=== PATIENT | male | born 1955 | race Caucasian/White ===

== ENCOUNTER → 2016-10-30 | Outpatient (CLI) | payer OTHER ==
--- NOTE | ~2016-10-30 | CT2 ---
[facility]. [facility] A Service of [facility] RADIOLOGY TEXT RESULTS PATIENT: MARIANA IYER LOCATION: [facility] : 57 UNIT #: [id number] AGE: [address]: Mauro Robert MD SEX: M ORDER DR: [id number] [place] [id number] O MR#: [id number] Acc #: [id number] NAME: MARIANA IYER : 1955 SEX: M STUDY DATE/TIME: 10/30/2016 12:35 UNIT: [facility] ROOM: STUDY DESCRIPTION: CT Abd and Pelv W Cont Attending Physician: Mauro Robert M.D. Referring Physician: Mauro Robert M.D. Ordering Physician: Mauro Robert M.D. Primary Care Physician: Sultana Ventura M.D. MEDICAL IMAGING REPORT This report is preliminary unless electronic signature is present. EXAM CT abdomen and pelvis, 10/30/2016 INDICATIONS Right-sided lung cancer, status post right pneumonectomy. Restaging. Observation for metastatic disease. TECHNIQUE CT of the abdomen and pelvis with p.o. and IV contrast. 100 mL Isovue-370 IV contrast was utilized. This CT exam was performed with one or more of the following radiation dose reduction techniques: automatic exposure control, adjustment of mA and/or kV according to patient size, and iterative reconstruction. COMPARISON PET/CT dated 01/18/2016. FINDINGS ABDOMEN: Please refer to separately dictated report for details on the chest. The solid abdominal organs enhance normally. Specifically, the adrenal glands are normal in appearance. The gallbladder is not distended. The bowel is not dilated. No enlarged retroperitoneal or mesenteric lymph nodes. Abdominal aorta has some atherosclerotic disease, however is normal in caliber. PELVIS: There is some mild wall thickening of the urinary bladder. This may be due to low bladder volume, however correlate with urinalysis to identify cystitis. No enlarged pelvic or inguinal lymph nodes. [facility] A Service of [facility] RADIOLOGY TEXT RESULTS PATIENT: MARIANA IYER LOCATION: [facility] : 57 UNIT #: [id number] AGE: [address]: Mauro Robert MD SEX: M ORDER DR: No acute osseous abnormalities. IMPRESSION 1. No evidence of metastatic disease in the abdomen or pelvis. 2. Mild bladder wall thickening is nonspecific and may simply relate to a lack of distension however, I would recommend correlation with urinalysis to differentiate from a cystitis. Dictated by... Fred Cueva M.D. THIS IS AN ELECTRONICALLY VERIFIED REPORT Fred Cueva M.D. at 10/30/2016 10:23 PM ROSALIND/[email or web address] TD: 10/30/2016 21:57 JOB #: [id number] MEDICAL IMAGING REPORT
--- NOTE | ~2016-10-30 | CT55 ---
[facility] A Service of [facility] RADIOLOGY TEXT RESULTS PATIENT: MARIANA IYER LOCATION: [facility] : 57 UNIT #: [id number] AGE: [address]: Mauro Robert MD SEX: M ORDER DR: [id number] [place] [id number] O MR#: [id number] Acc #: [id number] NAME: MARIANA IYER : 1955 SEX: M STUDY DATE/TIME: 10/30/2016 12:35 UNIT: [facility] ROOM: STUDY DESCRIPTION: CT Chest W Con Attending Physician: Mauro Robert M.D. Referring Physician: Mauro Robert M.D. Ordering Physician: Mauro Robert M.D. Primary Care Physician: Sultana Ventura M.D. MEDICAL IMAGING REPORT This report is preliminary unless electronic signature is present. EXAM CT chest. DATE OF EXAM 10/30/2016 CLINICAL HISTORY Right lung cancer, status post right lobectomy. Restaging. Observation for metastatic disease. TECHNIQUE CT of the thorax utilizing 100 mL Isovue-370 IV contrast. Coronal and sagittal reconstructions were obtained. NOTE: This CT exam was performed with one or more of the following radiation dose reduction techniques: automatic exposure control, adjustment of mA and/or kV according to patient size, and iterative reconstruction. COMPARISON CT thorax dated 07/30/2016. FINDINGS The patient undergone a right pneumonectomy. There are minimal tree-in-bud nodules in the left costophrenic angle of the left lower lobe, unchanged from 07/30/2016. These are most consistent with inflammatory nodules. The central airways are patent. No pathologically enlarged mediastinal or hilar lymph nodes. There is shift of the mediastinum towards the right, not unexpected given the prior surgery. Please refer to the separately dictated report for details on the abdomen and pelvis. [facility] A Service [facility] RADIOLOGY TEXT RESULTS PATIENT: MARIANA IYER LOCATION: [facility] : 57 UNIT #: [id number] AGE: [address]: Mauro Robert MD SEX: M ORDER DR: No acute osseous abnormalities. IMPRESSION 1. No evidence of recurrent or metastatic disease in a patient status post right pneumonectomy. 2. Minimal tree-in-bud nodularity in the left lung base is unchanged from 07/30/2016. Dictated by... Fred Cueva M.D. THIS IS AN ELECTRONICALLY VERIFIED REPORT Fred Cueva M.D. at 10/30/2016 10:23 PM ROSALIND/kris TD: 10/30/2016 21:57 JOB #: [id number] MEDICAL IMAGING REPORT
[2016-10-30 12:35] LABS: POC - CREATININE 1.13 mg/dL (0.64-1.27); POC - GFR >60.0 mL/min (>60)
== END | disposition home or self-care (01) ==
LOC: SCT 11:57
PROVIDERS: Internal Medicine Hematology
DX: Z08 Encounter for follow-up examination after completed treatment for malignant neoplasm (principal); R91.8 Other nonspecific abnormal finding of lung field; N32.89 Other specified disorders of bladder; Z90.2 Acquired absence of lung [part of]; Z85.118 Personal history of other malignant neoplasm of bronchus and lung
CPT/HCPCS: 71260; 74177; 82565; Q9967

== ENCOUNTER → 2017-02-04 | Outpatient (CLI) | payer OTHER ==
--- NOTE | ~2017-02-04 | CT55 ---
[facility] A Service of [facility] RADIOLOGY TEXT RESULTS PATIENT: MARIANA IYER LOCATION: [facility] : 57 UNIT #: [id number] AGE: [address]: Mauro Robert MD SEX: M ORDER DR: [id number] [place] [id number] O MR#: [id number] Acc #: [id number] NAME: MARIANA IYER : 1955 SEX: M STUDY DATE/TIME: 02/04/2017 12:34 UNIT: [facility] ROOM: STUDY DESCRIPTION: CT Chest W Con Attending Physician: Mauro Robert M.D. Referring Physician: Mauro Robert M.D. Ordering Physician: Mauro Robert M.D. Primary Care Physician: Sultana Ventura M.D. MEDICAL IMAGING REPORT This report is preliminary unless electronic signature is present. EXAM CT chest with contrast. INDICATION Lung cancer. 3-month followup. Observation for residual disease and metastatic disease. PROCEDURE Contrast-enhanced CT of the chest. This CT exam was performed with one or more of the following radiation dose reduction techniques: automatic exposure control, adjustment of mA and/or kV according to patient size, and iterative reconstruction. COMPARISON 10/30/2016 FINDINGS The patient is status post right pneumonectomy. No suspicious nodules in the left lung. Expected volume loss right hemithorax with shift of the heart and mediastinal structures to the right. No appreciable nodularity in the right hemithorax. No adenopathy. No acute findings in the included upper abdomen. IMPRESSION Stable right pneumonectomy changes. No evidence for residual disease or metastatic disease to the chest. Dictated by... Hudson Antonio M.D. [facility] A Service of [facility] RADIOLOGY TEXT RESULTS PATIENT: MARIANA IYER LOCATION: [facility] : 57 UNIT #: [id number] AGE: [address]: Mauro Robert MD SEX: M ORDER DR: THIS IS AN ELECTRONICALLY VERIFIED REPORT Hudson Antonio M.D. at 02/05/2017 7:09 AM BRANDIN/faheem TD: 02/04/2017 17:12 JOB #: [id number] MEDICAL IMAGING REPORT Page 1 of 1
--- NOTE | ~2017-02-04 | CT2 ---
[facility] A Service [facility] RADIOLOGY TEXT RESULTS PATIENT: MARIANA IYER LOCATION: [facility] : 57 UNIT #: [id number] AGE: [address]: Mauro Robert MD SEX: M ORDER DR: [id number] [place] [id number] O MR#: [id number] Acc #: [id number] NAME: MARIANA IYER : 1955 SEX: M STUDY DATE/TIME: 02/04/2017 12:26 UNIT: [facility] ROOM: STUDY DESCRIPTION: CT Abd and Pelv W Cont Attending Physician: Mauro Robert M.D. Referring Physician: Mauro Robert M.D. Ordering Physician: Mauro Robert M.D. Primary Care Physician: Sultana Ventura M.D. MEDICAL IMAGING REPORT This report is preliminary unless electronic signature is present. EXAM CT abdomen and pelvis with contrast. INDICATION Lung cancer restaging. Observation for metastatic disease. PROCEDURE Contrast-enhanced CT of the abdomen and pelvis. This CT exam was performed with one or more of the following radiation dose reduction techniques: automatic exposure control, adjustment of mA and/or kV according to patient size, and iterative reconstruction. COMPARISON 10/30/2016 FINDINGS Refer to the separately dictated chest CT for thoracic findings. ABDOMEN WITH CONTRAST: No liver or splenic lesion. The kidneys, adrenal glands, pancreas unremarkable. Unremarkable gallbladder. Bowel loops are nondilated. Moderate colonic stool. PELVIS WITH CONTRAST: No pelvic mass or fluid. No aggressive appearing bone lesion. IMPRESSION 1. No evidence for metastatic disease in the abdomen or pelvis. 2. Refer to the separately dictated chest CT for thoracic findings. [facility] A Service [facility] RADIOLOGY TEXT RESULTS PATIENT: MARIANA IYER LOCATION: [facility] : 57 UNIT #: [id number] AGE: [address]: Mauro Robert MD SEX: M ORDER DR: Dictated by... Hudson Antonio M.D. THIS IS AN ELECTRONICALLY VERIFIED REPORT Hudson Antonio M.D. at 02/05/2017 7:09 AM BRANDIN/faheem TD: 02/04/2017 16:43 JOB #: [id number] MEDICAL IMAGING REPORT Page 1 of 1
[2017-02-04 12:41] LABS: POC - CREATININE 1.27 mg/dL (0.64-1.27); POC - GFR >60.0 mL/min (>60)
== END | disposition home or self-care (01) ==
LOC: SCT 12:15
PROVIDERS: Internal Medicine Hematology
DX: Z08 Encounter for follow-up examination after completed treatment for malignant neoplasm (principal); R91.8 Other nonspecific abnormal finding of lung field; Z90.2 Acquired absence of lung [part of]
CPT/HCPCS: 71260; 74177; 82565; Q9967